=== PATIENT | female | born 1940 | race Caucasian/White ===

== ENCOUNTER → 2020-09-15 | Day surgery (SDC) | payer OTHER ==
[~2020-09-15] VITALS: Ht 157.5 cm; Wt 96.2 kg
[~2020-09-15] MED LIST: VITAMIN B122500 MCG PO
--- NOTE | ~2020-09-15 | O ---
[facility] [place] [address] OPERATIVE REPORT Name: REINIER AKHTAR Room #: REG [facility]..#: [id number] Admission: 09/15/20 Attend Phys: Jay Keane MD Discharge: Date of : 40 Report #: [id number] THIS REPORT FOR: cc: Physician not on staff Physician not on staff Jay Keane MD ~ DOC #: [id number] cc: Shannon Denson MD DATE OF SERVICE: 09/15/2020 PREOPERATIVE DIAGNOSIS: Tumor of right lower lid medial canthus and cheek. 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 PROCEDURES: Excision of tumor of right lower lid medial canthus and cheek with myocutaneous flap repair of defect, vascularized tarsoconjunctival flap from right upper lid to right lower lid and full-thickness skin graft from left upper lid to right lower lid. SURGEON: Jay Keane MD. REFINERY OPERATOR VISBREAKING: None. ANESTHESIA: General. COMPLICATIONS: None. INDICATIONS FOR SURGERY: This pleasant 80-year-old woman has a massive ulcerative nodule encompassing her entire right lower lid extending onto her cheek and up onto her nose. She presents today for excision of this lesion with frozen sections and subsequent reconstruction of that defect. Informed consent was obtained to include but not limited to the potential risk for loss of vision, bleeding, infection, failure to improve the problem, and the potential need for further surgery or treatment. DESCRIPTION OF PROCEDURE: The patient was taken to the operating room where general anesthesia was administered. The right lower lid, the right lateral canthus, the right medial canthus, the right side of the cheek, the bridge of the nose, the upper lid and the lateral left upper lid were then all anesthetized with Xylocaine with epinephrine mixed with Marcaine and Wydase. The patient was subsequently prepped and draped in the usual sterile fashion. A fine tip skin marking pen was then utilized to outline the lesion, which included the entire right lower lid in the medial canthus up onto the bridge of the nose. The incisions were then made with a 15 blade through the skin around [address] [address] OPERATIVE REPORT Name: REINIER AKHTAR Room #: REG [facility].#: [id number] Admission: 09/15/20 Attend Phys: Jay Keane MD Discharge: Date of : 40 Report #: [id number] the entire lesion. The deeper dissection was accomplished with a Joshua scissor and the specimen oriented on a drawing for the waiting pathologist. Hemostasis was achieved in the field with diligent pinpoint monopolar cautery. She did not clot well throughout the entire case. The pathologist snap froze our specimen and found that the margins were clear. Attention was then turned to repair that defect. A myocutaneous flap was developed then from the medial aspect of the right lower lid to be rotated back in to correct the defect in the medial canthus that extended through the defect on the bridge of the nose. Hemostasis was then re-achieved. As that flap was rotated counterclockwise, it was secured with interrupted buried Vicryl sutures deep and then a final closure in the skin of 6-0 plain gut. This left the posterior lamellar defect of the right lower lid with reasonable tissue to secure to the medial canthus with prior vascularized flap that had been rotated into that position. A tarsotomy was then accomplished with a #15 blade across the width of the upper eyelid, 3.5 mm above the mature lashes. It was then harvested utilizing thin section techniques with a conjunctival flap and cleared of the underlying Fountain's muscle. This vascularized tarsoconjunctival flap was then secured into the right lower lid with 6-0 Vicryl sutures. This left a residual anterior lamellar defect of the entire lower lid. A caliper was then used to julius a 0.10 mm above the mature lashes in the left upper lid, following which an upper lid crease incision was then outlined. A Graefe forceps was then used to quantitate the redundant upper lid that could be removed. The incisions were then made with a Joshua scissor and a full thickness skin graft utilizing a thin section technique was then harvested with a high-temp cautery. That bed in the left upper lid from the donor site was dried with monopolar cautery and then closed with interrupted 6-0 chromic sutures to create an upper lid crease and then a final skin closure of 6-0 plain. The full thickness skin graft was then defatted and secured into its new bed in the right lower lid in a bilamellar fashion with cardinal bites of 7-0 Vicryl suture and a final closure of 6-0 plain gut suture. Erythromycin ophthalmic ointment was then applied to the left upper lid incision in the right lower lid reconstruction. Multiple layers of Telfa were then placed on the right lower lid, following which a larger Telfa pad in the shape of an eye pad was placed followed by 2 eye pads, which were held in place with silk tape and Mastisol. The patient was subsequently transported to the recovery area, having tolerated the procedures well with no anesthetic or operative complications being noted. MD MARLENE Galvez/IAM/MILAN [place] [phone] OPERATIVE REPORT Name: HERMILOREINIER MERVIN Room #: REG [facility] M.R.#: [id number] Admission: 09/15/20 Attend Phys: Jay Keane MD Discharge: Date of : 40 Report #: [id number] By: [id number] Jay Keane MD /nt
[2020-09-15 12:41] VITALS: BP 141/47
--- NOTE | 2020-09-16 17:07 | PATH ---
[facility] [place] [address] PATHOLOGY RPT PROCEDURE Name: REINIER AKHTAR Room #: REG [facility]..#: [id number] Admission: 09/15/20 Date of : 40 Discharge: Report #: [id number] Path Case #: [id number] [facility] Accession Number: [id number] . 01 Material submitted: . eyelid - LESION RIGHT LOWER EYELID - FS. Modifiers: right, lower . 01 Clinician provided ICD-10: D23.112 . 02 Frozen section diagnosis: . FROZEN SECTION DIAGNOSIS: (By Dr. Rosalia Velazquez) . FSA1 and FSA2. Lesion right lower eyelid, excision: - BASAL CELL CARCINOMA. - Margins free of invasive carcinoma on FS slides examined. . These findings are discussed with Dr. Jay Keane and a written report is placed in the patient's chart. (IUV:pit; 09/15/2020) . FROZEN SECTION GROSS DESCRIPTION: The specimen is received fresh from the OR labeled with the patient's name, and "lesion right lower eyelid", consists of a rectangular excision of skin with the superior end of the specimen not representing the true margin as it represents the eyelid. The specimen is additionally oriented as medial, inferior and lateral. The specimen measures 2.1 x 1.5 x 0.8 cm. The medial margin is inked blue, the inferior margin along with the deep margin is inked black and the lateral margin is inked green. At this point the specimen is sectioned into three pieces and two pieces are submitted for frozen section as FSA1, one piece representing the enface inferior margin is submitted in FSA2. The frozen section remnants are submitted for permanent section as A1 and A2 respectively. . (IUV:pit; 09/15/2020) . Frozen section performed at [facility], [address], [place] [address]. IZV/QTP . 02 Diagnosis: Skin, lesion right lower eyelid, excision: - BASAL CELL CARCINOMA (please see comment). - Margins of resection free of malignancy (please see comment). (IUV:chris; 09/16/2020) S 09/16/2020 1633 Local [facility] [address] [place] [address] PATHOLOGY RPT PROCEDURE Name: REINIER AKHTAR Room #: REG [facility] M.R.#: [id number] Admission: 09/15/20 Date of : 40 Discharge: Report #: [id number] Path Case #: [id number] . 02 Comment: The basal cell carcinoma is widely infiltrative. Definitive perineural invasion is not identified and the interpretation is limited due to frozen section artifact. An S100 immunohistochemical stain is ordered on block A1 and the results of this will be reported in an addendum to follow. The inferior margin was examined en face at the time of the frozen section, submitted as FSA2. There is no evidence of malignancy present within the FSA2 level 1 and level 2 slides examined intraoperatively. The permanent section slide; however, has widely infiltrative basal cell carcinoma present. This does not represent a true margin. (IUV:chris; 09/16/2020) . 02 Electronically signed: . Rosalia Velazquez MD, Pathologist NPI- [id number] . 01 Gross description: . SEE FROZEN SECTION FOR GROSS DESCRIPTION /QTP 09/15/2020 1454 Local . 02 Pathologist provided ICD-10: C44.1122 . 02 CPT . 073211, 494010, [id number], 618062 Specimen Comment: A courtesy copy of this report has been sent to [phone] Specimen Comment: Report sent to Performed at: [address], [place] [id number] MD Tong Hernandez MD Phone: [phone] Performed at: [address] [id number] MD Rosalia Velazquez MD Phone: [phone]
== END | disposition home or self-care (01) ==
LOC: OR 09:43
PROVIDERS: ATTEND Ophthalmology
DX: C44.1122 Basal cell carcinoma of skin of right lower eyelid, including canthus (principal); Z98.890 Other specified postprocedural states; Z98.41 Cataract extraction status, right eye; Z98.42 Cataract extraction status, left eye; Z96.652 Presence of left artificial knee joint; Z79.899 Other long term (current) drug therapy
CPT/HCPCS: 50010; 50101; 50386; 50398; 51636; 56525; 56531; 62110; 62900; 70005